=== PATIENT | male | born 1930 | race Two or more races ===

== ENCOUNTER 2017-06-21 12:48 | Emergency (ER) | payer MEDICAID, OTHER ==
[~2017-06-21] VITALS: Ht 167.6 cm; Wt 54.4 kg
[2017-06-21 13:58] LABS: Basophils # (auto) 0 uL; Basophils % (auto) 0.2 % (0.0-2.0); Eosinophils # (auto) 0.1 uL; Eosinophils % (auto) 0.7 % (0.0-7.0); Lymphocytes % (auto) 23.3 % (10.0-50.0); Mean Corpuscular Hemoglobin 33.3 pg (28.0-32.0); Mean Corpuscular Hgb Conc. 34.9 g/dL (32.0-36.0); Mean Corpuscular Volume 95.5 fL (80.0-100.0); Mean Platelet Volume 9.2 fL (6.9-10.8); Monocytes # (auto) 0.6 uL; Monocytes % (auto) 6.6 % (0.0-12.0); Neutrophils # (auto) 5.9 uL; Neutrophils % (auto) 69.2 % (37.0-80.0); Nucleated Red Blood Cells % 0.1 %; Platelet Count (auto) 273 10^3/uL (140-450); Red Cell Distribution Width 14.1 % (11.8-14.3); White Blood Cell 8.5 10^3/uL (4.4-10.8)
[2017-06-21 14:10] LABS: Albumin 2.8 g/dL (3.4-5.0); BUN/Creatinine Ratio 24.7; Bilirubin, Total 1.9 mg/dL (0.2-1.0); Calcium 8.7 mg/dL (8.5-10.1); Total Protein 8.2 g/dL (6.4-8.2)
[2017-06-21 14:15] LABS: Potassium 2.8 mmol/L (3.5-5.1)
[2017-06-21] MEDS ORDERED: POTASSIUM CHL 10% (20 MEQ/15ML) 15ml ORAL SOLN PO ONE (15:00)
[2017-06-21] MEDS ORDERED: POTASSIUM CHL 20MEQ/50ML 50 ML IV ONE (15:00)
[2017-06-21 16:41] VITALS: BP 127/83
== END 2017-06-21 17:14 | disposition home or self-care (01) ==
LOC: ER 12:48
DX: E87.6 Hypokalemia (principal); R73.9 Hyperglycemia, unspecified; I10 Essential (primary) hypertension; Z86.73 Personal history of transient ischemic attack (TIA), and cerebral infarction without residual deficits; Z90.49 Acquired absence of other specified parts of digestive tract; Z88.6 Allergy status to analgesic agent
CPT/HCPCS: 36415; 71010; 80053; 85025; 93005; 94761; 96365; 96366

== ENCOUNTER 2018-04-12 09:55 | Emergency (ER) | payer MEDICARE, MEDICAID ==
[~2018-04-12] VITALS: Ht 30.5 cm; Wt 0.5 kg
[2018-04-12 09:55] VITALS: BP 0/0
[2018-04-12] MEDS ORDERED: NALOXONE HCL 1MG/ML 2ML SYRINGE IV ONE (09:56)
[2018-04-12] MEDS ORDERED: CALCIUM CHLOR(10%) 100MG/ML 10ML SYRINGE IV ONE (09:56)
[2018-04-12] MEDS ORDERED: SODIUM BICARBONATE 8.4 % INJ 50ML VIAL IV ONE (09:56)
[2018-04-12] MEDS ORDERED: EPINEPHrine HCL 1 MG/10 ML SYRG IV ONE (09:56)
== END 2018-04-12 15:13 | disposition expired ==
LOC: ER 09:55 → EDBD 09:55 → ER 15:13
DX: I46.9 Cardiac arrest, cause unspecified (principal); I10 Essential (primary) hypertension; Z88.6 Allergy status to analgesic agent; Z90.49 Acquired absence of other specified parts of digestive tract; Z86.73 Personal history of transient ischemic attack (TIA), and cerebral infarction without residual deficits
CPT/HCPCS: 92950; 99285; J0171; J2310